=== PATIENT | female | born 1995 ===

== ENCOUNTER 2017-02-11 11:42 | Emergency (ER) | payer MEDICAID ==
[2017-02-11 11:42] VITALS: BMI 23.6
[2017-02-11 12:05] VITALS: TEMP 97.3
[2017-02-11] MEDS ORDERED: Oxycodone/Acetaminophen 5/325 mg Tab PO STA (12:05)
--- NOTE | 2017-02-11 12:10 | ED PDOC ---
Arrival/HPI - General Chief Complaint: Back Pain Time Seen by Provider: 02/11/17 12:03 Historian: Patient - History of Present Illness Narrative History of Present Illness (Text): 02/11/17 14:04 pt p/w + < 1 day onset of b/l mid back pain, atrumatic; pt also noted + infrequent cough x 1 day; pt states back pain is ~ 8/10, pt states movement causes more pain; pt states no fever/chills/sweats, no cp/sob/palpitations, no abd pain, no n/v, no numbness/tingling, no urinary/bowel changes, no fall/trauma /sick contact, no travel; pt denied other complaints; pt is here for further eval. 02/11/17 14:22 Time/Duration: 24 hours Symptom Onset: Sudden Symptom Course: Unchanged Quality: Aching Severity Level: 8, Severe Activities at Onset: Rest Context: Exertion Past Medical History - Provider Review Nursing Documentation Reviewed: Yes - Travel History Have you recently traveled outside [place] w/in the past 3 mons?: No - Infectious Disease Hx of Infectious Diseases: None - Tetanus Immunization Tetanus Immunization: Unknown - Past Medical History Past Medical History: No Previous - Genitourinary/Gynecological Other/Comment: menstrual pains, currently last day of menstrual cycle - Psychiatric Hx Substance Use: No - Past Surgical History Past Surgical History: No Previous - Anesthesia Hx Anesthesia: No - Suicidal Assessment Suicidal Thoughts: No Feels Threatened In Home Enviroment: No Family/Social History - Physician Review Nursing Documentation Reviewed: Yes Family/Social History: No Known Family HX Smoking Status: Never Smoked Hx Alcohol Use: No Hx Substance Use: No Hx Substance Use Treatment: No Allergies/Home Meds Allergies/Adverse Reactions: Allergies No Known Allergies Allergy (Verified 02/11/17 11:46) Review of Systems - Review of Systems Constitutional: Normal Eyes: Normal ENT: Normal Respiratory: Normal Cardiovascular: Normal Gastrointestinal: Normal Genitourinary Female: Normal Musculoskeletal: Back Pain Skin: Normal Neurological: Normal Endocrine: Normal Hemo/Lymphatic: Normal Psychiatric: Normal Physical Exam Vital Signs Reviewed: Yes (WNL) Vital Signs Temp Pulse Resp BP Pulse Ox 02/11/17 13:42 80 18 109/62 100 02/11/17 11:48 97.3 F L 98 H 15 104/70 99 Temperature: Afebrile Blood Pressure: Normal Pulse: Regular Respiratory Rate: Normal Appearance: Positive for: Well-Appearing, Non-Toxic, Other (uncomfortable, mild distress due to pain, alert/awake, GCS = 15, oriented x 3, sitting on the exam bed) Pain Distress: Mild Mental Status: Positive for: Alert and Oriented X 3 - Systems Exam Head: Present: Atraumatic, Normocephalic Pupils: Present: PERRL, Other (no nystagmus, no photophobia, sclera anicteric, visual field intact b/l) Extroacular Muscles: Present: EOMI Conjunctiva: Present: Normal Ears: Present: Normal Mouth: Present: Moist Mucous Membranes, Normal Teeth, Other (uvula/tongue are midline, no exudate/lesions, no drooling/stridor) Pharnyx: Present: Normal Nose (External): Present: Atraumatic Neck: Present: Normal Range of Motion, Trachea Midline, Other (no midline tenderness, no nuchal rigidity, no meningeal signs, no step off). No: MIDLINE TENDERNESS Respiratory/Chest: Present: Clear to Auscultation, Good Air Exchange, Other (no w/r/r; no tachypenia, no accessory muscle use noted). No: Respiratory Distress , Accessory Muscle Use Cardiovascular: Present: Regular Rate and Rhythm, Normal S1, S2. No: Murmurs Abdomen: Present: Normal Bowel Sounds, Other (well nourished female, no focal tenderness, no roach's sign, no mcburney's point tenderness, no masses/rebound/ guarding/rigidity). No: Tenderness, Distention, Peritoneal Signs Back: Present: Normal Inspection, Other (neurovasc intact b/l, no gross deformities, no cvat b/l). No: CVA Tenderness, Midline Tenderness Upper Extremity: Present: Normal Inspection, NORMAL PULSES, Neurovascularly Intact, Capillary Refill < 2s. No: Cyanosis, Edema Lower Extremity: Present: Normal Inspection, NORMAL PULSES, Normal ROM, Neurovascularly Intact, Capillary Refill < 2 s, Other (no SLR, strength 5/5 grossly intact in all limbs, neurovasc intact b/l). No: Edema Neurological: Present: GCS=15, CN II-XII Intact, Speech Normal Skin: Present: Warm, Dry, Normal Color, Other (cap refill < 1sec, no ulcerations , no petechiae; no rashes). No: Rashes Psychiatric: Present: Alert, Oriented x 3, Normal Insight, Normal Concentration Medical Decision Making ED Course and Treatment: 02/11/17 12:06 Impression: upper b/l lower back pain, atrumatic i have consider all the differential diagnosis regarding pt's chief medical complaints/clinical findings, including but are not limited to: Differential Diagnosis included but are not limited to: r/o UTI, back pain, ? ovarian cysts; unlikely surg process A/P: back pain, atrumatic - l/s - ua - observe - supportive care 02/11/17 13:55 pt felt much improved pt states her back pain is now 2/10 pt is awaiting L/S xray results 02/11/17 14:06 pt remained comfortable pt is made aware of her medical results pt is encouraged fluids pt is encouraged avoidance of heavy lifting/prolonged standing pt will f/u as directed pt will be discharged home Re-evaluation Time: 13:00 Reassessment Condition: Improved - Lab Interpretations Lab Results: Lab Results 02/11/17 12:03: Urine Color Yellow, Urine Appearance Cloudy, Urine pH 6.0, Ur Specific [place] 1.020, Urine Protein Trace H, Urine Glucose (UA) Negative, Urine Ketones Negative, Urine Blood Trace-intact H, Urine Nitrate Negative, Urine Bilirubin Negative, Urine Urobilinogen 0.2, Ur Leukocyte Esterase Small H , Urine RBC 1 - 3, Urine WBC 2 - 5, Ur Epithelial Cells 6 - 8, Urine Bacteria Few, Urine HCG, Qual Negative I have reviewed the lab results: Yes (WNL) Interpretation: All labs normal - RAD Interpretation Radiology Orders: 02/11/17 12:04 LS SPINE WITH OBL > 18 YRS OLD [RAD] Stat 02/11/17 13:17 Radiographs of the Lumbar Spine Creator : Otto De Jesus MD FINDINGS: BONES: Normal alignment. No listhesis. No fracture. DISC SPACES: Unremarkable. OTHER FINDINGS: Constipation without fecal impaction or obstruction. IMPRESSION: Unremarkable radiographs of the lumbar spine. Junior Buyer: Radiologist - Medication Orders Current Medication Orders: Discontinued Medications Diazepam (Valium) 2 mg PO ONCE ONE PRN Reason: Protocol Stop: 02/11/17 12:06 Last Admin: 02/11/17 12:32 Dose: 2 mg Ketorolac Tromethamine (Toradol) 30 mg IVP STAT STA Stop: 02/11/17 12:06 Last Admin: 02/11/17 12:31 Dose: 30 mg MAR Pain Assessment Document 02/11/17 12:31 AB (Rec: 02/11/17 12:32 [id number] Pain Reassessment Is this a pain reassessment? Yes Sleep Is patient sleeping during reassessment? No Presence of Pain Presence of Pain Yes Pain Scale Used Pain Scale Used Numeric Location Left, Right or Bilateral Bilateral Pain Location Body Site Back Description Description Constant Pain Behavior Moaning Aggravating Factors ADL's Exercise/Activity Alleviating Factors/Management Medication Techniques IVP Administration Document 02/11/17 12:31 AB (Rec: 02/11/17 12:32 [id number] Charges for Administration # of IVP Administrations 1 Oxycodone/Acetaminophen (Percocet 5/325 Mg Tab) 1 tab PO STAT STA Stop: 02/11/17 12:06 Last Admin: 02/11/17 12:31 Dose: 1 tab MAR Pain Assessment Document 02/11/17 12:31 AB (Rec: 02/11/17 12:31 [id number] Pain Reassessment Is this a pain reassessment? Yes Sleep Is patient sleeping during reassessment? No Presence of Pain Presence of Pain Yes Pain Scale Used Pain Scale Used Numeric Location Left, Right or Bilateral Bilateral Pain Location Body Site Back Description Description Constant Intensity of Pain at present 7 Pain Behavior Moaning Aggravating Factors ADL's Alleviating Factors/Management Medication Techniques Alleviating Factors Medication Trimethoprim/Sulfamethoxazole (Bactrim Ds Tab) 1 tab PO STAT STA PRN Reason: Protocol Stop: 02/11/17 13:22 Last Admin: 02/11/17 13:34 Dose: 1 tab Disposition/Present on Arrival - Present on Arrival Any Indicators Present on Arrival: No History of DVT/PE: No History of Uncontrolled Diabetes: No Urinary Catheter: No History of Decub. Ulcer: No History Surgical Site Infection Following: None - Disposition Have Diagnosis and Disposition been Completed?: Yes Diagnosis: UTI (urinary tract infection), Back pain Disposition: HOME/ ROUTINE Disposition Time: 13:57 Patient Plan: Discharge Condition: STABLE Discharge Instructions (ExitCare): Urinary Tract Infection in Women (ED), Back Pain (ED) Print Language: SWISS Additional Instructions: Make sure to see your doctor in 1-2 days DRINK PLENTY OF FLUIDS take your medications as prescribed RETURN TO ED IF worse pain, cant breath, persistent vomiting, high fever >101- 102 for hours, altered behavior, unable to urinate, heavy/persistent bleeding, passing out, chest pain, or other medical emergencies Prescriptions: Ibuprofen [Motrin] 400 mg PO QID #30 tab oxyCODONE/Acetaminophen [Percocet 5/325 mg Tab] 1 tab PO QID #6 tab Sulfamethoxazole/Trimethoprim [Bactrim DS 800 mg-160 mg] 1 tab PO BID #19 tab Referrals: PCP,NO [Family Provider] - Follow up with primary Forms: [employer] (Al[place]ian)
[2017-02-11 13:02] LABS: URINE BILIRUBIN NEGATIVE (NEGATIVE); URINE BLOOD TRACE-INTACT (NEGATIVE); URINE GLUCOSE (UA) NEGATIVE (NEGATIVE); URINE KETONE NEGATIVE (NEGATIVE); URINE LEUKOCYTE ESTERASE SMALL Leu/uL (NEGATIVE); URINE PROTEIN TRACE mg/dL (<30 mg/dL); URINE UROBILINOGEN 0.2 E.U./dL (<1 E.U./dL)
[2017-02-11 13:06] LABS: URINE APPEARANCE CLOUDY (CLEAR); URINE COLOR YELLOW (YELLOW)
--- NOTE | 2017-02-11 13:14 | RAD ---
PROCEDURE: Radiographs of the Lumbar Spine. HISTORY: lower back pain COMPARISON: No prior. FINDINGS: BONES: Normal alignment. No listhesis. No fracture. DISC SPACES: Unremarkable. OTHER FINDINGS: Constipation without fecal impaction or obstruction. IMPRESSION: Unremarkable radiographs of the lumbar spine.
[2017-02-11] MEDS ORDERED: Tmp-Smz 800 mg-160 mg DS Tab PO STA (13:21)
[2017-02-11 13:33] LABS: URINE BACTERIA FEW (NEG)
[2017-02-11 14:13] VITALS: BP 109/62; PULSE 80; RESP 18; O2SAT 100
== END 2017-02-11 14:13 | disposition home or self-care (01) ==
LOC: ED 11:42
DX: N39.0 Urinary tract infection, site not specified (principal); M54.5 Low back pain
CPT/HCPCS: 72110; 81001; 84703; 87086; 96374; 99283; J1885